=== PATIENT | male | born 2005 | race Caucasian/White ===

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

== ENCOUNTER 2023-10-09 12:52 | Emergency (ER) | payer MEDICAID ==
[~2023-10-09] VITALS: Ht 170.2 cm; Wt 59.1 kg
[2023-10-09 13:01] VITALS: TEMP 98.1
[2023-10-09 14:50] VITALS: BP 137/84; PULSE 74; RESP 18
== END 2023-10-09 14:51 | disposition home or self-care (01) ==
LOC: EMS 12:52
DX: S46.001A Unspecified injury of muscle(s) and tendon(s) of the rotator cuff of right shoulder, initial encounter (principal); W19.XXXA Unspecified fall, initial encounter; Y93.89 Activity, other specified; Y92.89 Other specified places as the place of occurrence of the external cause; Y99.8 Other external cause status
CPT/HCPCS: 99283